=== PATIENT | male | born 1940 | race Caucasian/White ===

== ENCOUNTER → 2019-05-06 | Outpatient (CLI) | payer MEDICARE, OTHER ==
--- NOTE | 2019-05-06 12:38 | NM ---
EXAM DESCRIPTION: Bone Scan, 3Phase: Nuclear Medicine CLINICAL HISTORY: 78 years Male PAIN DUE TO KNEE JOINT PROSTHESIS COMPARISON: None. TECHNIQUE: Patient injected with 27.1 mCi of technetium 99M MDP IV. Immediate flow gamma camera images were obtained of the bilateral knees from various planes. "Blood pool" images were then obtained of the bilateral knees from various planes. Delayed gamma camera images from various planes bilateral knees were obtained 3 hr after injection. FINDINGS: On the flow phase and "blood pool" phase, no abnormal activity in the knees bilaterally. Central activity dropout in the knees bilaterally consistent with prosthesis from total knee arthroplasty. On the delayed images, there is relatively symmetric activity in the condyles and plateaus bilaterally associated with the superior femoral component abutting the condyles, and the tibial component. IMPRESSION: 1. Triple phase radionuclide bone scan of the knees in a patient with bilateral total knee arthroplasty showing no evidence of bone loosening, bone fracture, or bony infection. 2. Activity in the knees bilaterally at the margins of the prostheses is symmetric and may be related to minimal bone hypertrophy at the margins. Electronically signed by: Mg Sanabria MD 05/06/2019 12:36 PM CDT
== END ==
LOC: NM 08:00
PROVIDERS: ATTEND Orthopaedic Surgery
DX: T84.84XD Pain due to internal orthopedic prosthetic devices, implants and grafts, subsequent encounter (principal); Z96.653 Presence of artificial knee joint, bilateral
CPT/HCPCS: 78315; A9503

== ENCOUNTER → 2019-09-01 | Outpatient (CLI) | payer MEDICARE | LOC: LAB.O 09:57 | PROVIDERS: ATTEND Orthopaedic Surgery | DX: Z01.818 Encounter for other preprocedural examination (principal) ==

== ENCOUNTER → 2019-09-09 | Outpatient (CLI) | payer MEDICARE, OTHER ==
--- NOTE | 2019-09-09 13:33 | RAD ---
4 radiographs of the right knee. Indication: KNEE PAIN Impression: Postsurgical changes of right total knee arthroplasty and patellar resurfacing noted. Small knee effusion. No acute fracture identified. Questionable lucency at the superior and inferior margins of the patellar component which may relate to surgical technique or possible loosening. Electronically signed by: Loy Gomez MD 09/09/2019 1:31 PM CDT
--- NOTE | 2019-09-09 13:35 | RAD ---
EXAM DESCRIPTION: Pelvis CLINICAL HISTORY: 78 years Male, HIP PAIN COMPARISON: None. TECHNIQUE: AP radiograph of the pelvis was performed. FINDINGS: The pelvic ring appears grossly intact on this single AP radiograph. No acute fracture or dislocation. Bilateral sacroiliac joints appear normal. Mild bilateral hip osteoarthritis. The visualized lumbo-sacral spine demonstrates mild degenerative changes. IMPRESSION: Single AP radiograph of the pelvis demonstrates grossly intact pelvic ring. Mild bilateral hip osteoarthritis. Electronically signed by: Mitchell Zavala MD 09/09/2019 1:33 PM CDT
--- NOTE | 2019-09-09 13:35 | RAD ---
EXAM DESCRIPTION: Knee,Left Complete CLINICAL HISTORY: 78 years Male, KNEE PAIN COMPARISON: None. Findings: Left total knee arthroplasty. Small joint effusion. No acute fracture or dislocation. No hardware complication. Surgical clips overlie the leg. IMPRESSION: Left total knee arthroplasty. No evidence of hardware complication. Small joint effusion. Electronically signed by: Genaro Kinney MD 09/09/2019 1:33 PM CDT
== END ==
LOC: RAD 12:05
PROVIDERS: ATTEND Orthopaedic Surgery
DX: M16.0 Bilateral primary osteoarthritis of hip (principal); M25.461 Effusion, right knee; M25.462 Effusion, left knee; Z96.651 Presence of right artificial knee joint; Z96.652 Presence of left artificial knee joint

== ENCOUNTER 2019-09-16 05:15 | Inpatient (IN) | payer MEDICARE, OTHER ==
--- NOTE | 2019-09-07 14:00 | RAD ---
EXAM DESCRIPTION: Chest,2 Views CLINICAL HISTORY: PREOP EXAM COMPARISON: None TECHNIQUE: PA/lateral FINDINGS: Sternotomy wires are present. Surgical clips in the left anterior mediastinum. Heart size is normal with normal pulmonary vascularity. No pleural effusion or pneumothorax. Lungs are clear with no consolidating infiltrate. Lateral view shows intact sternum and T-spine. IMPRESSION: No acute process is identified in the chest. Electronically signed by: Albert Colon MD 09/07/2019 1:59 PM CDT
--- NOTE | 2019-09-08 08:25 | HP ---
CHIEF COMPLAINT: Left knee pain. HISTORY OF PRESENT ILLNESS: Mr. Mujica is a 78-year-old male with a history of knee replacements done back in the . He did well after that, but has subsequently developed pain in the knee. He had no trauma related to the onset of this, denies any radiation of pain and denies any neurologic symptoms. The pain is pretty consistently a 2, but can worsen to a 7 at times. There have been no fevers or constitutional symptoms. All testing has been negative for any type of infection or distinct loosening. X-rays did show what appeared to be uneven wear of his polyethylene. Alleviating factors have been NSAIDs and aggravating factors are standing and walking. Associated symptoms are occasional tingling. After discussing the findings on x-ray, bone scan and labs, we talked about revision of this. It seems that we have been able to locate new polyethylene and the plan at this point is debridement with polyethylene change. We have discussed the potential for full revision if the polyethylene for some reason is unable to be used. After discussing the risks, benefits and alternatives to operative therapy, he has given informed consent of the above procedure. PAST SURGICAL HISTORY: 1. Bilateral total knee arthroplasty. 2. Rotator cuff repair. MEDICATIONS: 1. Glimepiride. 2. Prilosec. 3. Metoprolol. 4. Aspirin. 5. Finasteride. 6. Lisinopril. 7. Zocor. PAIN CONTRACT: None. ALLERGIES: NO KNOWN DRUG ALLERGIES. CODE STATUS: Full code. IMMUNIZATIONS: Up to date. SOCIAL HISTORY: The patient does not drink, smoke or use any illicit drugs. FAMILY HISTORY: None pertinent to today's complaint. REVIEW OF SYSTEMS: Negative except as indicated in the History of Present Illness. HEENT: The patient reports no symptoms. RESPIRATORY: The patient reports no symptoms. CARDIOVASCULAR: The patient reports no symptoms. GASTROINTESTINAL: The patient reports no symptoms GENITOURINARY: The patient reports no symptoms. MUSCULOSKELETAL: Negative except as noted in History of Present Illness. SKIN: The patient reports no symptoms. NEUROLOGIC: The patient reports no symptoms. PHYSICAL EXAMINATION: VITAL SIGNS: Blood pressure 182/85. Pulse 51. Height 5'9". Weight 207 pounds. MENTAL STATUS: The patient is awake, alert, and is able to give a good history and participate in the physical. The patient is oriented to person, place and time. SKIN: Normal tone and turgor. HEENT: Normocephalic, atraumatic. Pupils equal, round and reactive. Mucosal membranes are moist. NECK: Normal range of motion. No thyromegaly, no lymphadenopathy. CHEST: Normal respiratory excursion. CARDIAC: Regular rate and rhythm. No murmurs, rubs or gallops. MUSCULOSKELETAL: The bilateral upper extremities show full active range of motion without pain. He has intact sensation and both extremities are warm and well perfused. He has negative belly press maneuver on both sides. He has negative Neer and negative [place] on both sides. He has 5/5 strength, no malalignment and no deformity. The right lower extremity shows full active range of motion of the hip without pain. He has intact sensation. It is warm and well perfused. He has a well-healed wound on the anterior aspect of the knee. He has some pain with palpation in the knee, but no effusion, no erythema and no soft tissue swelling. There is no varus or valgus laxity. He has no anterior or posterior laxity. He has good range of motion of the ankle and digits. The contralateral side shows full range of motion of the hip without pain. He has full extension of the knee and flexion to about 125 degrees. He has no anterior or posterior laxity. He has a mild effusion today. He has some diffuse pain, but most prominent along the medial aspect. He has a well-healed wound anteriorly. He has no gross overall malalignment or deformity. He has full range of motion of ankle and digits. RADIOLOGY: My interpretation of the x-rays shows excessive and uneven wear of the polyethylene. ASSESSMENT: 1. Failed total knee. PLAN: The plan at this point is for polyethylene exchange with potential revision. We have discussed the risks, benefits, and alternatives to that and the patient has given informed consent. #[id number] [facility] [place]
[2019-09-16] MEDS ORDERED: SODIUM CHL 0.9% 100ML MINI-BAG 100 ML IVPB ONE (05:51)
[2019-09-16] MEDS ORDERED: LACTATED RINGERS 1,000 ML ONE ×2 (05:51→13:07)
[2019-09-16] MEDS ORDERED: SODIUM CHLORIDE 0.9% 250ML 250 ML ONE ×3 (05:52→19:17)
[2019-09-16] MEDS ORDERED: VANCOMYCIN HCL INJ 1,000 MG VIAL IVPB ONE ×3 (05:52→19:18)
[2019-09-16] MEDS ORDERED: TRANEXAMIC ACID 1,000 MG/10 ML VIAL ONE ×2 (05:52→05:53)
[2019-09-16] MEDS ORDERED: SODIUM CHLORIDE 0.9% 100ML 100 ML IVPB ONE (05:52)
[2019-09-16] MEDS ORDERED: ceFAZolin SODIUM 1 GM VIAL ONE ×4 (05:52→08:22)
[2019-09-16] MEDS ORDERED: BUPIVACAINE LIPOSOME 13.3 MG/ML VIAL INJ ONE (06:31)
[2019-09-16] MEDS ORDERED: MORPHINE SULFATE *EPIDURAL* 0.5 MG/ML VIAL ONE (06:33)
[2019-09-16] MEDS ORDERED: KETAMINE HCL 100 MG/ML VIAL ONE (06:33)
[2019-09-16] MEDS ORDERED: fentaNYL CITRATE INJ 50 MCG/ML AMP ONE (06:33)
[2019-09-16] MEDS ORDERED: ACETAMINOPHEN IV 1000MG 100 ML ONE (06:33)
[2019-09-16] MEDS ORDERED: MIDAZOLAM INJ 2 MG/2 ML VIAL ONE (06:34)
[2019-09-16] MEDS: VANCOMYCIN HCL INJ 1,000 MG VIAL IVPB ONE ×3 (07:51→12:09)
[2019-09-16] MEDS: ceFAZolin SODIUM 1 GM VIAL ONE ×3 (07:51→10:00)
[2019-09-16] MEDS: BUPIVACAINE 0.5% 30 ML VIAL INJ ONE ×2 (08:41→08:54)
[2019-09-16] MEDS ORDERED: ROCURONIUM BROMIDE 10 MG/ML VIAL ONE (09:03)
[2019-09-16] MEDS ORDERED: ELECTROLYTE-A 1,000 ML IVS ONE (09:36)
[2019-09-16] MEDS ORDERED: GLYCOPYRROLATE 0.2 MG/ML VIAL IV ONE (10:00)
[2019-09-16] MEDS ORDERED: SODIUM CHLORIDE 0.9% 50 ML VIAL INJ ONE (10:00)
[2019-09-16] MEDS ORDERED: ceFAZolin SODIUM 1 GM VIAL IVPB ONE (10:00)
[2019-09-16] MEDS ORDERED: MAGNESIUM SULFATE INJ 1 GM/2 ML VIAL IVPB ONE (10:00)
[2019-09-16] MEDS ORDERED: ePHEDrine SULF 50 MG/ML IV ONE (10:00)
[2019-09-16] MEDS ORDERED: PROPOFOL 200 MG/20 ML VIAL IV ONE (10:00)
[2019-09-16] MEDS ORDERED: DEXAMETHASONE INJ 10 MG/ML VIAL IV ONE (10:00)
[2019-09-16] MEDS ORDERED: raNITIdine HCL INJ 25 MG/ML VIAL IV ONE (10:00)
[2019-09-16] MEDS ORDERED: SODIUM CHLORIDE 0.9% 1000ML 1,000 ML ONE (12:03)
[2019-09-16] MEDS ORDERED: SODIUM CHLORIDE 0.9% (FLUSH) 10 ML SYG IV PRN (12:23)
[2019-09-16] MEDS ORDERED: BISACODYL SUPPOSITORY 10 MG PR PRN (12:23)
[2019-09-16] MEDS ORDERED: MORPHINE SULFATE INJ 10 MG/ML VIAL IV PRN (12:23)
[2019-09-16] MEDS ORDERED: MAGNESIUM HYDROXIDE 30 ML UD PO PRN (12:23)
[2019-09-16] MEDS ORDERED: ALUMINUM & MAGNESIUM HYDROXIDE 30 ML UD PO PRN (12:23)
[2019-09-16] MEDS ORDERED: TEMAZEPAM 15 MG CAP PO PRN (12:23)
[2019-09-16] MEDS ORDERED: PROMETHAZINE HCL INJ 12.5 MG in SODIUM CHLORIDE 0.9% 50ML 50 ML IVPB PRN (12:23)
[2019-09-16] MEDS ORDERED: BENZOCAINE-MENTH LOZ (CEPACOL) 1 EA LOZ MT PRN (12:23)
[2019-09-16] MEDS ORDERED: NALOXONE HCL INJ 0.4 MG/ML VIAL IV PRN (12:23)
[2019-09-16] MEDS ORDERED: traMADol HCL 50 MG TAB PO PRN (12:23)
[2019-09-16] MEDS ORDERED: ZOLPIDEM TARTRATE 5 MG TAB PO PRN (12:23)
[2019-09-16] MEDS ORDERED: TRANEXAMIC ACID INJ 1,000 MG in SODIUM CHLORIDE 0.9% 100ML 100 ML IVPB ONE (12:23)
[2019-09-16] MEDS ORDERED: ACETAMINOPHEN 500 MG TAB PO PRN (12:23)
[2019-09-16] MEDS ORDERED: ACETAMINOPHEN 325 MG TAB PO PRN (12:23)
[2019-09-16] MEDS ORDERED: MORPHINE SULFATE INJ 10 MG/ML VIAL IM PRN (12:23)
[2019-09-16] MEDS ORDERED: PROMETHAZINE HCL INJ 25 MG in SODIUM CHLORIDE 0.9% 50ML 50 ML IVPB PRN (12:23)
[2019-09-16] MEDS ORDERED: HYDROcodone 5MG/APAP 325MG 1 EA TAB PO PRN (12:23)
[2019-09-16] MEDS ORDERED: ONDANSETRON INJ 4 MG/2 ML VIAL IV PRN (12:23)
[2019-09-16] MEDS ORDERED: DEX 5% W/NACL 0.45% 1000ML 1,000 ML IVS PRN (12:23)
[2019-09-16] MEDS ORDERED: MORPHINE PCA 1 MG/ML 100 ML BAG IVPB SCH (12:30)
[2019-09-16] MEDS ORDERED: IV SET AND CAP CHANGE INJ INJ SCH (12:30)
[2019-09-16] MEDS ORDERED: SUGAMMADEX SODIUM 200 MG/2 ML VIAL IV ONE (12:42)
[2019-09-16] MEDS ORDERED: LEVALBUTEROL NEBS 1.25 MG/3 ML VIAL NEB ONE ×2 (13:06→13:12)
[2019-09-16] MEDS ORDERED: LACTATED RINGERS 1,000 ML IVS ONE (13:20)
--- NOTE | 2019-09-16 13:42 | OP ---
DATE OF PROCEDURE: 09/16/19 PREOPERATIVE DIAGNOSIS: 1. Failed bilateral total knee arthroplasty. POSTOPERATIVE DIAGNOSIS: 1. Failed bilateral total knee arthroplasty. PROCEDURE: 1. Polyethylene exchange of left knee. 2. Debridement of left knee. 3. Polyethylene exchange of right knee. 4. Exchange of patellar component of right knee. 5. Debridement of right knee. SURGEON: Erik Metcalf MD. CABLE MECHANIC: Mg Reich CST, SA-C. ANESTHESIA: General anesthesia. COMPLICATIONS: None. FINDINGS: 1. Severe wear with polyethylene debris and exuberant synovitis of the left knee. No gross loosening of the components. 2. Severe wear with polyethylene debris and no loosening of the components on the right knee. 3. Excessive wear of the polyethylene component of the metal backed patella on the right knee. INDICATION: Mr. Mujica has a history of having had bilateral total knee arthroplasty done. He actually did really well for many years, however, began having pain. He also had increasing feelings of instability. Because of his symptoms, he had thorough workup for both loosening and infection. The workup was negative. I discussed with Mr. Mujica the potential for revision and fortunately we were able to find polyethylene that fit his knees. We discussed doing unilateral, however, he chose to undergo bilateral. After discussing the risks, benefits and alternatives to that, the patient has given informed consent for that. PROCEDURE: The patient was brought to the Operating Room and placed in supine position. General anesthesia was induced and the patient's left leg was sterilely prepped and draped. Following prepping and draping, an incision was made in line with his previous incision. Dissection was carried down to the capsule and capsulotomy was performed. There was remaining suture from his previous surgical intervention. That suture was removed. Medial arthrotomy was performed and complete synovectomy was performed. The polyethylene was removed. Care was taken to ensure complete removal of all debris from the medial and lateral gutters. The posterior recesses were also debrided. The components were manually checked to ensure there was no gross loosening. There did not appear to be any evidence of loosening. The polyethylene appeared to be a size 13 and size 13 was placed. It fit well and there was no evidence of instability. The patella did not have excessive wear that would warrant removal and replacement. The wound was very thoroughly irrigated and closed with reapproximation of the arthrotomy using PDS. The skin was closed with a combination of running and interrupted subcuticular stitches. Sterile dressings were placed. The room was broken down and the right leg was sterilely prepped and draped. Using new equipment, the knee was approached through an anterior incision in line with his previous incision. Dissection was carried down and a medial arthrotomy was performed. The knee was very thoroughly debrided. Upon opening the knee, it was noted there was a significant amount of debris and excessive polyethylene wear. A complete synovectomy was performed and also in the medial and lateral gutters as well as posterior recesses. After thorough debridement, a size 13 polyethylene was impacted. It was stable and the knee was taken through a range of motion. The patella tracked well. That said, there was excessive wear of the polyethylene on the patella. The metal was exposed and therefore needed to be revised. Using a series of osteotomes and thin saw blades, I was able to remove the patella. There was minimal bone loss. The patella was debrided and prepared for a cemented component. Following the debridement, a size 33 all-polyethylene patella was cemented. The cement was allowed to cure. The wound was very thoroughly irrigated and it was closed with reapproximation of the arthrotomy using PDS. The skin was closed with a combination of running and interrupted subcuticular stitches. Sterile dressings were placed. The patient was awoken from anesthesia and taken to Recovery. POSTOPERATIVE PLAN: He is going to be weightbearing as tolerated on postoperative day 1. Cultures were taken from both knees at the time of surgery. Although there did not appear to be any evidence of infection, I will continue the antibiotics until culture results have returned. #[id number] [facility]
--- NOTE | 2019-09-16 16:33 | CONS ---
DATE OF CONSULTATION: 09/16/19 SUPERVISING PHYSICIAN: Prince Coley M.D. REASON FOR CONSULTATION: Medical management. HISTORY OF PRESENT ILLNESS: This is a 78 year-old male patient who has a history of bilateral total knee arthroplasties. However, over time he has experienced some bilateral knee pain. Conservative measures were unsuccessful in eliminating the pain and therefore he underwent surgical intervention today. Today, they did a knee exploration with polyethylene exchange in both the left knee and the right knee as well as an exchange of the patellar component of the right knee. There were no intraoperative complications and he returned to the Medical/Surgical Unit in stable condition. At time of examination, the patient did not complain of any significant pain and is in no distress. PAST MEDICAL HISTORY: 1. Hypertension. 2. Coronary artery disease. 3. Benign prostatic hypertrophy. 4. Hyperlipidemia. 5. Diabetes mellitus type 2. PAST SURGICAL HISTORY: 1. Bilateral total knee arthroplasty. 2. Rotator cuff repair. 3. Coronary artery bypass graft in 1988 and 1998. CURRENT MEDICATIONS: 1. Alfuzosin 10 mg p.o. at bedtime. 2. Aspirin 81 mg p.o. daily. 3. Finasteride 5 mg p.o. at bedtime. 4. Glimepiride 4 mg p.o. b.i.d. 5. Lisinopril 5 mg p.o. daily. 6. Metoprolol 50 mg p.o. daily. 7. Omeprazole 10 mg p.o. daily. 8. Simvastatin 80 mg p.o. at bedtime. ALLERGIES: NO KNOWN DRUG ALLERGIES. FAMILY HISTORY: Reviewed and noncontributory. SOCIAL HISTORY: The patient is a nondrinker and nonsmoker. No illicit drugs. REVIEW OF SYSTEMS: CONSTITUTIONAL: No fever. No chills. No recent weight loss or weight gain. HEENT: No headaches, vision changes, ear pain, nasal congestion or throat pain. CARDIOVASCULAR: No chest pain, palpitations or peripheral edema. RESPIRATORY: No cough, hemoptysis or pleuritic chest pain. GASTROINTESTINAL: No nausea, vomiting, diarrhea, constipation or abdominal pain. GENITOURINARY: No dysuria, frequency or flank pain. MUSCULOSKELETAL: Bilateral knee pain, otherwise negative. ENDOCRINE: No polydipsia, polyuria or polyphagia. No heat or cold intolerance. NEUROLOGIC: No syncope, paresthesias or seizures. SKIN: No rashes, lesions or wounds. PHYSICAL EXAMINATION: VITAL SIGNS: Blood pressure 116/74, heart rate 68, respiratory rate 20, temperature 96.7, oxygen saturation 95%. GENERAL: Mr. Mujica is a 78 year-old male patient in no active distress. CHEST: Lungs are clear to auscultation bilaterally. HEART: Regular rate and rhythm. Normal S1 and S2. ABDOMEN: Soft. Positive bowel sounds. EXTREMITIES: Both lower extremities have Sebastian bandages in place. Peripheral pulses are 2+, capillary refill less than 2 seconds. He does have full sensation. NEUROLOGIC: The patient is alert and oriented. IMPRESSION: 1. History of bilateral knee osteoarthritis status post total knee arthroplasties in the past requiring revisions today with polyethylene exchange as well as a right patellar revision. 2. Hypertension. 3. History of coronary artery disease. 4. Diabetes mellitus. 5. Benign prostatic hypertrophy. PLAN: The patient will be admitted to the Medical/Surgical Unit. He will participate in physical therapy as well as anticoagulation postoperatively as per ordered by Dr. Metcalf. Pain control measures have been ordered as well. I will resume his home medications. I will check a chemistry as well as a hemoglobin A1c in the morning as well. He states that his glucose is fairly controlled or normal bases. I am going to resume his p.o. medications and hold off on any insulin therapy unless he becomes uncontrolled. Will monitor his physical therapy throughout admission and potential need for further physical therapy upon discharge. #[id number] [facility]
[2019-09-16] MEDS ORDERED: ceFAZolin SODIUM 2 GRAMS PREMI 50 ML IVPB ONE ×2 (16:38→19:18)
[2019-09-16] MEDS: ceFAZolin SODIUM 2 GRAMS PREMI 2 GM in PREMIX BAG 1 BAG IVPB SCH ×2 (16:46→23:44)
[2019-09-16] MEDS: VANCOMYCIN HCL INJ 1,000 MG in SODIUM CHLORIDE 0.9% 250ML 250 ML IVPB SCH (17:26)
[2019-09-16] MEDS: CELECOXIB 100 MG CAP PO SCH (17:28)
[2019-09-16] MEDS ORDERED: ENOXAPARIN SODIUM 30 MG/0.3 ML SYG SUBCU ONE (19:18)
[2019-09-16] MEDS: GLIMEPIRIDE 2 MG TAB PO SCH (20:12)
[2019-09-16] MEDS: DOCUSATE CALCIUM 240 MG CAP PO SCH (20:12)
[2019-09-16] MEDS: SIMVASTATIN 20 MG TAB PO SCH (20:12)
[2019-09-16] MEDS: FINASTERIDE 5 MG TAB PO SCH (20:12)
[2019-09-16] MEDS: ALFUZOSIN HCL 10 MG PO SCH (20:14)
[2019-09-16] MEDS ORDERED: NON-FORMULARY MEDICATION 1 EA MIS (Glimepiride [Glimepiride] 4 MG) PO SCH (21:00)
[2019-09-16] MEDS ORDERED: SIMVASTATIN 80 MG PO SCH (21:00)
[2019-09-16] MEDS: ENOXAPARIN SODIUM 30 MG/0.3 ML SYG SUBCU SCH (22:40)
[2019-09-17] MEDS: VANCOMYCIN HCL INJ 1,000 MG in SODIUM CHLORIDE 0.9% 250ML 250 ML IVPB SCH (05:31)
[2019-09-17] MEDS ORDERED: OMEPRAZOLE CAP 20 MG CAP ONE (07:08)
[2019-09-17] MEDS ORDERED: ceFAZolin SODIUM 2 GRAMS PREMI 50 ML IVPB ONE (07:09)
[2019-09-17] MEDS: CELECOXIB 100 MG CAP PO SCH ×2 (07:20→16:27)
--- NOTE | 2019-09-17 08:01 | PN ---
DATE: 09/17/19 SUBJECTIVE: Damion is doing really well. His pain is well controlled. OBJECTIVE: Afebrile. Vital signs stable. Dressings are clean, dry and intact. ASSESSMENT: Status post bilateral total knee revision. PLAN: The plan at this point is to begin weightbearing as tolerated. #[id number] [facility]
[2019-09-17] MEDS: ceFAZolin SODIUM 2 GRAMS PREMI 2 GM in PREMIX BAG 1 BAG IVPB SCH (08:42)
[2019-09-17] MEDS: MAGNESIUM OXIDE 400 MG TAB PO SCH (09:01)
[2019-09-17] MEDS: GLIMEPIRIDE 2 MG TAB PO SCH ×2 (09:01→20:38)
[2019-09-17] MEDS: LISINOPRIL 5 MG TAB PO SCH (09:01)
[2019-09-17] MEDS: ASPIRIN (CHEWABLE) 81 MG TAB PO SCH (09:01)
[2019-09-17] MEDS: METOPROLOL SUCCINATE XL 50 MG TAB PO SCH (09:01)
[2019-09-17] MEDS: OMEPRAZOLE CAP 20 MG CAP PO SCH (09:02)
[2019-09-17] MEDS: ENOXAPARIN SODIUM 30 MG/0.3 ML SYG SUBCU SCH ×2 (10:23→23:01)
--- NOTE | 2019-09-17 11:29 | RAD ---
Frontal and lateral views of the left knee. Indication: TKA Impression: Postsurgical changes of left total knee arthroplasty and patellar resurfacing noted with associated postsurgical changes of the soft tissues. No complicating features identified. Electronically signed by: Loy Gomez MD 09/17/2019 11:27 AM [facility]
--- NOTE | 2019-09-17 11:34 | RAD ---
Frontal and lateral views of the right knee. Indication: TKA Impression: Postsurgical changes of right total knee arthroplasty and patellar resurfacing noted with associated postsurgical changes of the soft tissues. No complicating features identified. Electronically signed by: Loy Gomez MD 09/17/2019 11:32 AM [facility]
--- NOTE | 2019-09-17 14:13 | PN ---
SUPERVISING PHYSICIAN: Prince Coley MD DATE: 09/17/19 SUBJECTIVE: The patient is doing well. He is walking in the koch with no significant issues. OBJECTIVE: VITAL SIGNS: Blood pressure 113/67. Heart rate 76. Respiratory rate 16. Temperature 97.0. Oxygen saturation 92%. GENERAL: Mr. Mujica is a 78-year-old male patient who is in no active distress currently. NEUROLOGIC: Alert and oriented. LUNGS: Clear to auscultation bilaterally. CARDIOVASCULAR: Regular rate and rhythm. Normal S1, S2. ABDOMEN: Soft. Positive bowel sounds. EXTREMITIES: Lower extremities with bilateral knees wrapped in Sebastian. He is walking in the koch with no issues. LABORATORY: Hemoglobin A1c 6.2. Chemistry unremarkable. Hemoglobin 11.1. ASSESSMENT: 1. Bilateral knee osteoarthritis status post bilateral total knee arthroplasty revision. 2. Hypertension. 3. History of coronary artery disease. 4. Diabetes mellitus, type 2. 5. Benign prostatic hypertrophy. PLAN: At this time, we will continue pain control, physical therapy and continue his home medications as well. He seems to be progressing quite well with physical therapy. I anticipate that he will not need any inpatient rehab or Swing Bed status at the conclusion of this admission. #[id number] [facility]
[2019-09-17] MEDS: ALFUZOSIN HCL 10 MG PO SCH (20:31)
[2019-09-17] MEDS: HYDROcodone 10MG/APAP 325MG 1 EA TAB PO PRN (20:38)
[2019-09-17] MEDS: DOCUSATE CALCIUM 240 MG CAP PO SCH (20:38)
[2019-09-17] MEDS: SIMVASTATIN 20 MG TAB PO SCH (20:38)
[2019-09-17] MEDS: FINASTERIDE 5 MG TAB PO SCH (20:38)
[2019-09-17] MEDS: CYCLOBENZAPRINE HCL 10 MG TAB PO PRN (20:48)
[2019-09-18] MEDS: HYDROcodone 10MG/APAP 325MG 1 EA TAB PO PRN ×2 (02:39→08:37)
[2019-09-18] MEDS: CYCLOBENZAPRINE HCL 10 MG TAB PO PRN (06:09)
[2019-09-18] MEDS: OMEPRAZOLE CAP 20 MG CAP PO SCH (06:12)
[2019-09-18 06:28] VITALS: BP 135/68; TEMP 98.4
[2019-09-18 06:31] VITALS: O2SAT 98
[2019-09-18] MEDS: CELECOXIB 100 MG CAP PO SCH (07:32)
[2019-09-18] MEDS: LISINOPRIL 5 MG TAB PO SCH (08:37)
[2019-09-18] MEDS: METOPROLOL SUCCINATE XL 50 MG TAB PO SCH (08:37)
[2019-09-18] MEDS: GLIMEPIRIDE 2 MG TAB PO SCH (08:37)
[2019-09-18] MEDS: ASPIRIN (CHEWABLE) 81 MG TAB PO SCH (08:40)
[2019-09-18] MEDS: MAGNESIUM OXIDE 400 MG TAB PO SCH (08:40)
[2019-09-18] MEDS ORDERED: SODIUM CHLORIDE 0.9% (FLUSH) 10 ML SYG IV SCH (09:00)
--- NOTE | 2019-09-18 10:03 | DS ---
SUPERVISING PHYSICIAN: Prince Cloey MD ADMISSION DIAGNOSIS: 1. History of bilateral knee osteoarthritis status post total knee arthroplasties requiring revisions with polyethylene exchange to bilateral knee as well as a right patellar revision. 2. Hypertension. 3. History of coronary artery disease. 4. Diabetes mellitus. 5. Benign prostatic hypertrophy. DISCHARGE DIAGNOSIS: 1. History of bilateral knee osteoarthritis status post total knee arthroplasties requiring revisions with polyethylene exchange to bilateral knee as well as a right patellar revision. 2. Hypertension. 3. History of coronary artery disease. 4. Diabetes mellitus. 5. Benign prostatic hypertrophy. HOSPITAL COURSE: This is a 78-year-old male who underwent elective bilateral total knee arthroplasty revisions. There were no intraoperative complications. Postoperatively, he participated in physical therapy and pain was controlled. There were no signs of infection. Hemoglobin was stable. His home medications were resumed. The patient progressed fairly well and was able to participate to the full extent in physical therapy. He will be discharged today in stable condition. He did get anticoagulation with Lovenox 100 mg b.i.d. while he was here. A prescription has been written for Xarelto 10 mg daily for the next 10 days to complete a 12-day course. He will followup with Dr. Metcalf on October 02 at 9 AM. He will do outpatient physical therapy at the [facility] in [place] as well. #[id number] [facility]
[2019-09-19] MEDS ORDERED: BISACODYL SUPPOSITORY 10 MG PR ONE (21:00)
[2019-09-19] MEDS ORDERED: MAGNESIUM HYDROXIDE 30 ML UD PO ONE (21:00)
== END 2019-09-18 10:30 | disposition home or self-care (01) | DRG 465 ==
LOC: AMB 05:15 → MS 14:11
PROVIDERS: ADMIT Orthopaedic Surgery; ATTEND Nurse Practitioner
PROC: 0SPD09Z Removal of Liner from Left Knee Joint, Open Approach (ICD-10-PCS; 2019-09-16)
PROC: 0SUW09Z Supplement Left Knee Joint, Tibial Surface with Liner, Open Approach (ICD-10-PCS; 2019-09-16)
PROC: 0SUC09C Supplement Right Knee Joint with Liner, Patellar Surface, Open Approach (ICD-10-PCS; 2019-09-16)
PROC: 3E0T3BZ Introduction of Anesthetic Agent into Peripheral Nerves and Plexi, Percutaneous Approach (ICD-10-PCS; 2019-09-16)
PROC: 3E0T3BZ Introduction of Anesthetic Agent into Peripheral Nerves and Plexi, Percutaneous Approach (ICD-10-PCS; 2019-09-16)
PROC: 0SPC09Z Removal of Liner from Right Knee Joint, Open Approach (ICD-10-PCS; principal; 2019-09-16 06:55)
DX: T84.84XA Pain due to internal orthopedic prosthetic devices, implants and grafts, initial encounter (principal); I10 Essential (primary) hypertension; I25.10 Atherosclerotic heart disease of native coronary artery without angina pectoris; N40.0 Benign prostatic hyperplasia without lower urinary tract symptoms; E78.5 Hyperlipidemia, unspecified; E11.9 Type 2 diabetes mellitus without complications; Z96.653 Presence of artificial knee joint, bilateral; Z95.1 Presence of aortocoronary bypass graft; Z79.82 Long term (current) use of aspirin; Z79.899 Other long term (current) drug therapy; Y79.2 Prosthetic and other implants, materials and accessory orthopedic devices associated with adverse incidents; Y92.009 Unspecified place in unspecified non-institutional (private) residence as the place of occurrence of the external cause